=== PATIENT | male | born 1975 | race African-American/Black ===

== ENCOUNTER 2020-01-22 20:16 | Emergency (ER) | payer SELFPAY ==
[~2020-01-22] VITALS: Ht 180.3 cm; Wt 105.2 kg
[2020-01-22] MEDS ORDERED: MELOXICAM15 MG PO ×2 (20:30→20:32)
[2020-01-22] MEDS ORDERED: METFORMIN HCL500 M1 ORAL (20:31)
[2020-01-22] MEDS ORDERED: FLUOXETINE HCL10 M2 ORAL (20:31)
[2020-01-22] MEDS ORDERED: ATENOLOL50 MG ORAL (20:31)
[2020-01-22] MEDS ORDERED: AMLODIPINE BESY10 MG ORAL (20:34)
[2020-01-22] MEDS ORDERED: ATORVASTATIN CA20 MG ORAL (20:34)
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
[2020-01-22 20:45] VITALS: BP 135/88
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
[2020-01-22] MEDS ORDERED: Cephalexin 500mg cap ORAL ONE (21:00)
[2020-01-22] MEDS ORDERED: Doxycycline Monohydrate 100mg ORAL ONE (21:00)
--- NOTE | 2020-01-22 21:48 | Diagnostic Imaging Report ---
LEFT SHOULDER, 3 views INDICATION: COMPARISON: FINDINGS: 3 views of the left shoulder are obtained. Bony structures are intact. Bone mineralization is within normal limits. No dislocation at the glenohumeral joint. Joint spaces are preserved. Soft tissues are within normal limits. IMPRESSION: No acute fracture or dislocation identified.
[2020-01-22] MEDS ORDERED: ATIVAN1 MG ORAL (22:05)
[2020-01-22] MEDS ORDERED: DOXYCYCLINE MO100 MG ORAL (22:05)
[2020-01-22] MEDS ORDERED: CEPHALEXIN500 MG ORAL (22:05)
[2020-01-22 22:20] VITALS: BP 135/88
--- NOTE | 2020-01-22 22:20 | NUR ---
ER DISCHARGE NOTE: pt's L arm placed in sling, pt tolerated well. Patient is cleared to be discharged per ERMD, pt is aox4, on room air, with stable vital signs. pt was given dc and prescription instructions, pt was able to verbalize understanding, pt id band removed without complications. pt is able to ambulate with steady gait. pt took all belongings.
== END 2020-01-22 22:20 | disposition home or self-care (01) ==
LOC: EMR 20:45
DX: S43.402A Unspecified sprain of left shoulder joint, initial encounter (principal); E11.9 Type 2 diabetes mellitus without complications; L02.411 Cutaneous abscess of right axilla; E66.9 Obesity, unspecified; G80.9 Cerebral palsy, unspecified; I10 Essential (primary) hypertension; E78.00 Pure hypercholesterolemia, unspecified; Z68.32 Body mass index [BMI] 32.0-32.9, adult; X58.XXXA Exposure to other specified factors, initial encounter; Y92.9 Unspecified place or not applicable
CPT/HCPCS: 82962; 99283